=== PATIENT | male | born 1965 | race Caucasian/White ===

== ENCOUNTER 2022-07-09 13:41 | Outpatient (CLI) | payer OTHER, SELFPAY ==
[2022-07-09 10:34] LABS: Chloride* 104 mmol/L (96-114); Potassium* 4.7 mmol/L (3.6-5.1); Sodium* 140 mmol/L (135-149)
[2022-07-09 10:36] LABS: Alkaline Phosphatase* 75 U/L (40-150); Aspartate Amino Transferase* 21 U/L (12-35); Bilirubin Total* 1.6 mg/dL (0.1-1.5); Blood Urea Nitrogen* 21 mg/dL (7-30); Carbon Dioxide* 32 mmol/L (20-32); Cholesterol* 154 mg/dL (90-199); Creatinine* 1.1 mg/dL (0.5-1.5); Estimated Glomerular Filt Rate 78 ml/min; Total Protein* 6.8 g/dL (6.0-8.3)
[2022-07-09 10:37] LABS: Alanine Aminotransferase* 23 U/L (4-50); Calcium* 9.5 mg/dL (8.4-10.6); Glucose* 133 mg/dL (60-115); HDL Cholesterol* 42 mg/dL (>=40); LDL Cholesterol Calculated 92 mg/dL (<100); Triglycerides* 100 mg/dL (40-149)
[2022-07-09 11:07] LABS: PSA Screen* 3.54 ng/mL (0.10-4.00)
== END 2022-07-09 13:42 | disposition home or self-care (01) ==
PROVIDERS: PCP Internal Medicine; Visit Provider Internal Medicine
DX: Z00.00 Encounter for general adult medical examination without abnormal findings (principal); Z12.5 Encounter for screening for malignant neoplasm of prostate; Z13.6 Encounter for screening for cardiovascular disorders
CPT/HCPCS: 80053; 80061; 84153

== ENCOUNTER 2024-06-29 09:21 | Outpatient (CLI) | payer OTHER, SELFPAY ==
--- OUTSIDE RECORDS SUMMARY | 2024-06-30 15:45 | XMS_ITS | Clinical Summary ---
Author Organization [facility] Address [place] [id number] Care Team Providers Care General Assistant Name Role Phone Hilario Kaplan MD Primary Care Provider Allergies No known active allergies Medications Medication Sig Dispensed Refills Start Date End Date Status tamsulosin (FLOMAX) 0.4 mg capsule Take 1 capsule by mouth once daily after a meal. 0 12/17/2014 Active iron,carbonyl-vitamin C (VITRON-C) 65 mg iron- 125 mg Delayed-Release tablet Take 1 Tab by mouth once daily. 0 05/04/2017 Active lisinopril-hydrochloro thiazide 20-12.5 mg tablet (PRINZIDE) 05/25/2022 Active Active Problems Problem Noted Date Diagnosed Date Hyperopia of right eye with astigmatism and pres byopia 05/26/2022 Myopia of left eye with astigmatism and presbyop ia 05/26/2022 Nuclear senile cataract of both eyes 09/09/2020 SHOULDER SPRAIN 08/03/2005 ROTATOR CUFF TENDONITIS 07/20/2005 LUMBAR DISC HERNIA 02/02/2002 DETACHMENT, OLD, RETINAL, PARTIAL-OD 01/23/2001 LUMBAGO 01/08/2000 Immunizations Name Administration Dates Next Due Hepatitis B (Peds) 07/07/2000,02/05/2000, 000 Influenza A (H1N1), Inactivated 10/09/2009 Influenza Virus, Unspecified 07/03/2015,07/03/20 14,07/03/2011,08/12/2009 Influenza, IIV3 (Age >=3 years) 07/20/2016 Tdap 05/12/2009 Family History Medical History Relation Name Comments Genetic Other negative for co nnective tissue disease. ~hypertension~heart disease Relation Name Status Comments Other Social History Tobacco Use Types Packs/Day Years Used Date Smoking Tobacco: Never Cigarettes Qu it: 09/19/1990 Smokeless Tobacco: Never Tobacco Cessation:Counseling Given: Yes Comments:Quit 10 years ago 1990 Alcohol Use Standard Drinks/Week Comments No 0 (1 standard drink = 0.6 oz pur e alcohol) PHQ-2 Answer Date Recorded PHQ-2 Score 0 11/19/2018 Sex and Gender Information Value Date Recorded Sex Assigned at Not on file Gender Identity Not on file Sexual Orientation Not on file Obstetrics History Last Filed Vital Signs Vital Sign Reading Time Taken Comments Blood Pressure 135/100 08/07/2018 3:05 PM [employer] Pulse 57 12/08/2022 2:18 PM CDT Temperature 36.8 ??C (98.2 ??F) 05/02/2018 4:55 PM CD T Respiratory Rate 12 05/02/2018 4:55 PM CDT Oxygen Saturation 98% 12/08/2022 2:18 PM CDT Inhaled Oxygen Concentration - - Weight 126.9 kg (279 lb 12.8 oz) 12/08/2022 2:18 PM CDT Height 193 cm (6' 3.98) 07/17/2018 2:45 PM CDT Body Mass Index 34.07 07/17/2018 2:45 PM CDT Plan of Treatment Health Maintenance Due Date Last Done Comments HIV for age 15-65 1979 Hepatitis C screening for age 18-79 1982 Colonoscopy through age 75 2009 Lipids for age 45-75 2009 Zoster (shingles) series for age 50+ (1 of 2) 2014 Depression screening for age 12+ 05/02/2019 05/02/2018, 12/06/2016 Tetanus booster 05/12/2019 05/12/2009 BMI (ht and wt on same day) for age 18+ 07/17/2019 07/17/2018, 05/02/2018, 12/06/2016 COVID-19 vaccine series (2023- season) 2024 06/22/2023, 10/16/2021, 01/30/2021, Additional history exists Influenza for age 50-64 05/20/2024 07/20/20 16, 07/03/2015, 07/03/2014, Additional history exists Tdap Completed 05/12/2009 Pneumococcal series for age 6-64 Aged Out No longer eligible based on patient's age to complete this topic Care Teams General Assistant Relationship Specialty Start Date End Date Hilario Kaplan MD [address] [place] [address] PCP - General 10/20/11
== END 2024-06-29 09:22 | disposition home or self-care (01) ==
LOC: NFLDREF 06-30 15:43
PROVIDERS: PCP Internal Medicine; Referring Provider Internal Medicine; Visit Provider Internal Medicine
DX: I10 Essential (primary) hypertension (principal); Z13.220 Encounter for screening for lipoid disorders; Z12.5 Encounter for screening for malignant neoplasm of prostate
CPT/HCPCS: 80053; 80061; G0103

== ENCOUNTER 2025-01-04 09:30 | Outpatient (CLI) | payer BC, SELFPAY | END 2025-01-04 09:31 | disposition home or self-care (01) | LOC: NFLDREF 01-08 17:43 | PROVIDERS: PCP Internal Medicine; Referring Provider Internal Medicine; Visit Provider Internal Medicine | DX: Z12.5 Encounter for screening for malignant neoplasm of prostate (principal) | CPT/HCPCS: G0103 ==

== ENCOUNTER 2025-08-16 08:39 | Outpatient (CLI) | payer BC, SELFPAY | END 2025-08-16 08:40 | disposition home or self-care (01) | LOC: NFLDREF 08-21 09:41 | PROVIDERS: PCP Internal Medicine; Referring Provider Internal Medicine; Visit Provider Internal Medicine | DX: I10 Essential (primary) hypertension (principal); N40.0 Benign prostatic hyperplasia without lower urinary tract symptoms | CPT/HCPCS: 80053; 80061; G0103 ==